=== PATIENT | female | born 2000 | race African-American/Black ===

== ENCOUNTER 2021-11-06 18:45 | Emergency (ER) | payer OTHER ==
[~2021-11-06] VITALS: Ht 162.6 cm; Wt 46.0 kg
[2021-11-06 18:59] VITALS: BP 103/73
[2021-11-06] MEDS ORDERED: BACITRACIN ZINC OINT UDPKT TOP ONE (21:45)
[2021-11-06] MEDS ORDERED: LIDOCAINE HCL/PF 1% 10 MG/ML 5ML VIAL INFIL ONE (21:45)
== END 2021-11-06 22:42 | disposition left against medical advice (07) ==
LOC: ER 18:45
DX: S60.351A Superficial foreign body of right thumb, initial encounter (principal); X58.XXXA Exposure to other specified factors, initial encounter; Y93.89 Activity, other specified; Y92.9 Unspecified place or not applicable
CPT/HCPCS: 73120; 99283; J3490